=== PATIENT | male | born 1980 | race Caucasian/White ===

== ENCOUNTER 2022-02-25 19:47 | Emergency (ER) | payer OTHER ==
[~2022-02-25] VITALS: Ht 177.8 cm; Wt 94.5 kg
[2022-02-25 19:58] VITALS: BP 132/71
[2022-02-25 20:53] LABS: BASOPHILS % (AUTO) 0.4 % (0.0-2.0); HEMOGLOBIN 13.3 g/dL (12.0-18.0); LYMPHOCYTES # (AUTO) 1.3 K/uL (2.0-11.5); MEAN CORPUSCULAR HEMOGLOBIN 30 pg (27-31); MEAN CORPUSCULAR HGB CONC 33 g/dL (33-37); MEAN CORPUSCULAR VOLUME 90.3 fL (80-94); MONOCYTES # (AUTO) 0.5 K/uL (0.8-1.0); MONOCYTES % (AUTO) 9.3 % (1.7-9.3); NEUTROPHILS # (AUTO) 3.4 K/uL (1.8-7.7); NEUTROPHILS % (AUTO) 64.3 % (42.2-75.2); PLATELET COUNT (AUTO) 203 K/uL (140-450); RED BLOOD CELL COUNT(AUTO) 4.43 MIL/uL (4.20-6.10); RED CELL DISTRIBUTION WIDTH 13.3 % (11.6-13.7); WHITE BLOOD COUNT (AUTO) 5.2 K/uL (4.8-10.8)
[2022-02-25 21:22] LABS: ALBUMIN 3.9 g/dL (3.4-5.0); ANION GAP 11.1 (8-16); ASPARTATE AMINOTRANSFERASE 16 U/L (15-37); CARBON DIOXIDE 29.2 mmol/L (21-32); CHLORIDE 106 mmol/L (98-107); CREATININE 0.9 mg/dL (0.6-1.3); GFR ARICAN-AMERICAN 120 mL/min (>90); GLUCOSE 75 mg/dL (74-106); POTASSIUM 4.3 mmol/L (3.5-5.1); SODIUM SERUM 142 mmol/L (136-145); TOTAL BILIRUBIN 0.2 mg/dL (0.0-1.0); UREA NITROGEN, BLOOD 18 mg/dL (7-18)
--- NOTE | 2022-02-25 23:10 | NUR ---
PT CALLED, NO ANS.
--- NOTE | 2022-02-25 23:19 | NUR ---
PT CALLED NO ANSWER FROM INSIDE LOBBY AND OUTSIDE
--- NOTE | 2022-02-26 01:00 | NUR ---
PT TAKEN TO BED 5
--- NOTE | 2022-02-26 01:08 | NUR ---
Dr. Malagon examining patient.
--- NOTE | 2022-02-26 01:23 | NUR ---
41 y/o m bib self for irregular heart beat. pt went to [facility] primary care and they referred him here. pt ekg strip read junctional bradycardia. pt denies pain/ drug use/ alchol/ pmh: denies rx:denies
[2022-02-26 01:34] VITALS: BP 109/44
--- NOTE | 2022-02-26 01:34 | NUR ---
Patient discharged with v/s stable. Written and verbal after care instructions given and explained. Patient verbalized understanding. Ambulatory with steady gait. All questions addressed prior to discharge. Advised to follow up with PMD.
--- NOTE | 2022-02-26 01:34 | NUR ---
Chart checked and completed.
== END 2022-02-26 01:34 | disposition home or self-care (01) ==
LOC: MED 19:47
DX: R94.31 Abnormal electrocardiogram [ECG] [EKG] (principal)
CPT/HCPCS: 36415; 80053; 84484; 85025; 85379; 93005; 99284